=== PATIENT | female | born 1990 | race Caucasian/White ===

== ENCOUNTER 2019-04-12 10:03 | Inpatient (IN) | payer BC, SELFPAY ==
[2019-04-12] VITALS (13 sets, daily range): BP systolic 120–147; BP diastolic 56–84; PULSE 85–120; RESP 14–20; TEMP 36.2–37.1; O2SAT 97–99; BMI 38.9
[2019-04-12] MEDS: Lactated Ringers 500 ML 999 ML IV ×2 (10:30→14:42)
[2019-04-12 10:46] LABS: Absolute Lymphocyte Count 1.74 X10^3/uL (0.83-4.51); Absolute Neutrophil Count 12.2 X10^3/uL (2.0-7.7); Basophil# 0.03 X10^3/uL; Basophil% 0.2 % (0-1); Eosinophil# 0.03 X10^3/uL; Eosinophils% 0.2 % (0-5); Hematocrit 39.9 % (37-47); Hemoglobin 13.9 g/dL (12.0-15.0); Lymphocyte # 1.74 X10^3/ul (4.0); Lymphocyte % 11.6 % (19-41); Mean Corp Hgb Conc 34.8 g/dL (32-36); Mean Corpuscular Hgb 30.5 pg (27.0-32.0); Mean Corpuscular Volume 87.5 fL (81-99); Mean Platelet Vol. 12.1 fl (6.2-12.0); Monocyte# 0.94 X10^3/uL; Monocyte% 6.3 % (0-10); NRBC Flagged by Analyzer 0 % (0-5); Neutrophil % 81.2 % (47-70); Platelet Count 163 K/mm3 (150-450); RBC Distribution Width CV 12.4 % (11.6-14.6); RBC Distribution Width SD 39.3 fl (35.1-43.9); Red Blood Count 4.56 M/mm3 (4.2-5.4)
[2019-04-12] MEDS: Lactated Ringers 1,000 ML 50 ML IV (11:01)
[2019-04-12] MEDS: fentaNYL-bupivacaine (epidural) 100 ML BAG EPIDURAL ×3 (11:20→15:59)
--- NOTE | 2019-04-12 14:03 | HP.PCM_ITS ---
History Date of Admission: 04/12/19 Final PIYUSH: 04/14/19 Final PIYUSH Source: US <20 weeks Gestational age: 39 Weeks and 5 Days History of this : This is a 28 year-old,= 1 para 0 at 39-5/7 weeks gestation presents with spontaneous rupture of membranes and contractions. She was in the office when her brains ruptured spontaneously and she was found to be 6 cm and sent over for labor. She had no gross vaginal bleeding. She had good movement. Contractions started last night and got progressively worse this morning. has been complicated to date by the [facility] in , with BMI of 38 estimated weight is also thought to be in the 95th percentile. She had an ultrasound on 07/2019 which revealed an estimated weight of 3900 g. Allergies Sulfa (Sulfonamide Antibiotics) Allergy (Verified 04/12/19 10:39) Rash Home Medications: Home Medications Pnv No.95/Ferrous Fum/Folic AC [ Caplet] 1 ea PO 04/12/19 Smoking Status: Never smoker Alcohol: None Number of Fetus(es): 1 History Past Pregnancies: Past Pregnancies Delivery Date Name GA/ Weeks Outcome Route Wt Sex Labor Length Anesthesia Delivery Location Provider FOB Expected Infant Delivery Method: Spontaneous Vaginal Review of Systems Constitutional: Denies: Chills, Fever Eyes: Denies: Blurred vision Cardiovascular: Reports: Edema. Denies: Chest Pain Respiratory: Denies: Cough Skin: Denies: Rash Neurological: Denies: Headaches Hematologic/ Lymphatic: Denies: Anemia Physical Exam General: Alert, Cooperative, No apparent distress Cardiovascular: Regular rate Lungs: Normal air movement Abdomen: Soft, Non Tender, Non-Distended, Gravid Extremities:: Other - edema 1+ Neurological: Cranial nerves II-XII grossly intact. Negative for: Slurred Speech, Unsteady Gait REHABILITATION ASSISTANT: Normal external genitalia Estimated gestational size: Appropriate for gestational size Presentation: Cephalic Cervix Dilation (cm): 6 - in the office Station: -2 Effacement (%): 90 Assessment/Plan This is a 28 year-old, 1 para 0 at 39-5/7 weeks gestation with EDC of 04/14/2019 presents with spontaneous rupture membranes in labor. Estimated weight is between 4000 4500 g clinically and by ultrasound. Pelvis is clinically adequate to expect vaginal delivery. Have epidural, or nitrous oxide as needed for pain control. Patient does have thick meconium-stained fluid noticed after her spontaneous rupture of membranes. Will notify Pediatrics for delivery.
--- NOTE | 2019-04-12 16:58 | PN.OBGYN_ITS ---
Subjective: patient complete for 3.5 hrs, pushing for approximately 3. Station is still +1, has not made significant descent w/ pushing over past 1 hr. Giving good effort. With current station I d/w her she meets criteria for arrest of descent. Not appropriate for instrumental delivery trial. Offered c/s vs continue to push for 1 more hr. Patient elects for c/s. will proceed w/ VERA c/s. - Physical Exam Vitals/I&O's: Weight: 109.316 kg Body Mass Index (BMI) 38.9 Intake and Output for Last 24 Hours 04/10/19 04/11/19 04/12/19 23:59 23:59 23:59 Intake Total 1714.17 / 1714.17 Balance 1714.17 / 1714.17 Laboratory Results 04/12/19 10:30: WBC 15.0 H, RBC 4.56, Hgb 13.9, Hct 39.9, MCV 87.5, MCH 30.5, MCHC 34.8, RDW Std Deviation 39.3, RDW Coeff of Cesario 12.4, Plt Count 163, MPV 12.1 H, Immature Gran % (Auto) 0.500, Neut % (Auto) 81.2 H, Lymph % (Auto) 11.6 L, [place] % (Auto) 6.3, Eos % (Auto) 0.2, Baso % (Auto) 0.2, Absolute Neuts (auto) 12.2 H, Absolute Lymphs (auto) 1.74, Nucleated RBC % 0 04/12/19 10:30: Blood Type A POSITIVE, Antibody Screen NEGATIVE Current Medications Acetaminophen (Tylenol) 325 - 650 mg PO Q4H PRN PRN PRN Reason: Pain Score 1-3/10 Al Hydroxide/Mg Hydroxide (Mylanta Ii) 15 - 30 ml PO Q4H PRN PRN PRN Reason: INDIGESTION Citric Acid/Sodium Citrate (Bicitra) 30 ml PO X1 PRN PRN Reason: Section Ephedrine Sulfate () 10 mg IV Q10M PRN PRN Reason: hypotension Ephedrine Sulfate () 10 mg IM Q30M PRN PRN Reason: hypotension Fentanyl Citrate (Sublimaze (100mcg Ampule)) 25 - 50 mcg IV Q2H PRN PRN PRN Reason: Pain Score 4-10/10 Fentanyl/Bupivacaine/Sodium Chlor () 0 ml EPIDURAL UD GABRIELE; Protocol Last Admin: 04/12/19 15:59 Dose: 100 ml Documented by: Lactated Ringer's () 500 mls @ 999 mls/hr IV .Q31M PRN PRN Reason: Epidural Last Infusion: 04/12/19 11:01 Dose: Infused Documented by: Lactated Ringer's () 500 mls @ 999 mls/hr IV .Q31M PRN PRN Reason: Corrective Measures Last Infusion: 04/12/19 15:18 Dose: Infused Documented by: Lactated Ringer's () 1,000 mls @ 50 mls/hr IV .Q20H GABRIELE Last Infusion: 04/12/19 15:18 Dose: 200 mls/hr Documented by: Naloxone HCl 4 mg/ Dextrose 504 mls @ 0 mls/hr IV .Q0M PRN; Protocol PRN Reason: To maintain Resp. rate >10 Cefazolin Sodium 2 gm/ Sodium (Chloride) 110 mls @ 150 mls/hr IV X1 ONE Stop: 04/12/19 17:43 Azithromycin 500 mg/ Dextrose 255 mls @ 250 mls/hr IV X1 ONE Stop: 04/12/19 18:01 Naloxone HCl (Narcan) 0.02 mg IV Q1M PRN PRN Reason: RR< 10 AND PT UNRESPONSIVE Ondansetron HCl (Zofran) 4 mg IV Q4H PRN PRN PRN Reason: NAUSEA Prochlorperazine Edisylate (Compazine Iv) 10 mg IV Q6H PRN PRN PRN Reason: NAUSEA Sodium Chloride () 10 - 40 ml IV X1 PRN PRN Reason: SALINE FLUSH Medical Necessity - Tobacco Use Smoking Status: Never smoker
[2019-04-12] MEDS: Sodium Citrate/Citric Acid 30 ML UDC PO (17:00)
[2019-04-12] MEDS: Cefazolin 2 GM in 0.9% Normal Saline 100 ML IV (17:06)
--- NOTE | 2019-04-12 18:01 | OP.PCM_ITS ---
Delivery Classification: VERA Final PIYUSH: 04/14/19 Final PIYUSH Source: US <20 weeks Gestational age: 39 Weeks and 5 Days union contract representative: Hansel Geiger Type of Anesthesia:: Spinal Special Medications: none Implants Used: none Date of Procedure: 04/12/19 Pre-Operative Diagnosis: labor, meconium stained fluid, arrest of descent Post-Operative Diagnosis: same Description of Procedure: The patient was taken to the operating room. She was prepped and draped in the dorsal supine position with a leftward tilt. A Pfannenstiel skin incision was made approximately 2 cm above the symphysis pubis and carried through to underlying layer fascia with the scalpel. The fascia was incised incised in the midline and extended laterally with the Patrick scissors. The fascia was dissected off the rectus muscles with blunt and sharp dissection. The rectus muscles were in the midline and the peritoneum was entered sharply after tenting it up between 2 hemostats. The peritoneal incision was stretched and the bladder blade was placed. The uterine incision was made in a low transverse fashion with the scalpel and extended superiorly and inferiorly with blunt dissection. After the hysterotomy was made, thick meconium-stained fluid returned. The 's head was brought to the incision in the flexed position and delivered without difficulty. The remainder of the was delivered with gentle traction and fundal pressure in the standard fashion. The mouth and nares were bulb suctioned. The cord was clamped and cut as the was stimulated. Clamping was not delayed because of the meconium stained fluid the infant did not have a vigorous cry yet. The was handed off to the waiting nursing staff. The placenta was delivered with fundal massage and gentle traction in the standard fashion. The uterus was exteriorized and cleared of all clots and debris. . The uterine incision was closed with #1 Vicryl in a running locked fashion. There was a slight extension on the left side that was oversewn with 0 Vicryl suture. Several [id number] sutures were needed in this area to obtain hemostasis. There is a small hematoma in the broad ligament. A second layer of the same suture was used in an imbricating fashion. The incision was examined and was found to be hemostatic and the hematoma was not extending. Del was placed over the incision. The uterus was placed back into the peritoneal cavity and hemostasis was again confirmed. The rectus muscles were examined and any bleeding was Bovie cauterized. The parietal peritoneum and rectus muscles were closed en bloc with an 0 Vicryl running suture. The surgical teams outer gloves were then changed. The rectus fascia was examined and any bleeding was Bovie cauterized and the rectus fascia was closed with 0 PDS suture in a running standard fashion. Arist a was placed over every layer. The subcutaneous tissue was examining and any bleeding was Bovie cauterized. The subcutaneous tissue was reapproximated with 3-0 Vicryl suture. The skin was closed in a subcuticular fashion by the [employer] with me present in the labor and delivery suite. I performed the remainder of the procedure with assistance. All sponge, lap, and needle counts were correct. The patient was taken to her room for recovery in a stable condition. Amniotic Membrane Rupture Type: Spontaneous Amniotic Fluid Description: Thick meconium Placenta Disposition: [facility] Specimen(s) sent to pathology: none Drain: Jo to straight drain Fluids Replaced: 1050 Cord Entanglement: None Cord Vessel Description: 3 Vessels Esitmated Blood Loss (ml): 1000 Gender: Male - [place] (1 minute): 8 (5 minute): 9 Delayed cord clamping: No Antibiotic Given: Ancef 2 grams IV x1, Zithromax 500 mg/5 mL X1
[2019-04-12] MEDS: Oxytocin 30 units/NS 500 ml 30 UNITS/500 ML IV.SOLN 167 UNITS IV (18:15)
[2019-04-12] MEDS: Lactated Ringers 1,000 ML 100 ML IV (22:23)
[2019-04-13] VITALS (13 sets, daily range): BP systolic 105–125; BP diastolic 58–80; PULSE 97–114; RESP 16–18; TEMP 36.6–36.8; O2SAT 97–100
[2019-04-13] MEDS: Ketorolac 30 MG/ML Syringe IV ×4 (00:34→17:42)
--- NOTE | 2019-04-13 01:55 | NURSING ---
0140- Assisted pt out of bed, ambulated around the room. Pt tolerated well, denies any dizziness, and pain is tolerable at this time. Peripad and underpad changed.
[2019-04-13 05:21] LABS: Hemoglobin 10.5 g/dL (12.0-15.0); Mean Corp Hgb Conc 33.9 g/dL (32-36); Mean Corpuscular Hgb 30.2 pg (27.0-32.0); Mean Corpuscular Volume 89.1 fL (81-99); Mean Platelet Vol. 11.9 fl (6.2-12.0); Platelet Count 117 K/mm3 (150-450); RBC Distribution Width CV 13.2 % (11.6-14.6); RBC Distribution Width SD 42.6 fl (35.1-43.9); Red Blood Count 3.48 M/mm3 (4.2-5.4); White Blood Count 14.5 K/mm3 (4.4-11.0)
[2019-04-13] MEDS: 0.9% Saline Lock 10 ML Syringe IV ×2 (06:05→11:52)
--- NOTE | 2019-04-13 08:40 | PCM.PN.OB ---
Subjective: Pain well controlled. Average lochia. - Physical Exam Vitals/I&O's: Vital Signs Temp Pulse Resp BP Pulse Ox 97.9 F 100 16 114/67 99 04/13/19 03:50 04/13/19 06:10 04/13/19 07:49 04/13/19 07:49 04/13/19 07:49 Oxygen Delivery Method Room Air Weight: 109.316 kg Body Mass Index (BMI) 38.9 Intake and Output for Last 24 Hours 04/11/19 04/12/19 04/13/19 23:59 23:59 23:59 Intake Total 3365.00 / 3365.00 686.67 / 686.67 Output Total 700 / 700 Balance 2665.00 / 2665.00 686.67 / 686.67 General: Alert, Cooperative, No apparent distress Abdomen: Soft, Distended - Mildly, softly, Tender - Appropriately Extremities: Edema - 2+ Skin: Incision - Bandage is clean dry and intact Laboratory Results 04/12/19 10:30: WBC 15.0 H, RBC 4.56, Hgb 13.9, Hct 39.9, MCV 87.5, MCH 30.5, MCHC 34.8, RDW Std Deviation 39.3, RDW Coeff of Cesario 12.4, Plt Count 163, MPV 12.1 H, Immature Gran % (Auto) 0.500, Neut % (Auto) 81.2 H, Lymph % (Auto) 11.6 L, [place] % (Auto) 6.3, Eos % (Auto) 0.2, Baso % (Auto) 0.2, Absolute Neuts (auto) 12.2 H, Absolute Lymphs (auto) 1.74, Nucleated RBC % 0 04/12/19 10:30: Blood Type A POSITIVE, Antibody Screen NEGATIVE 04/13/19 05:10: WBC 14.5 H, RBC 3.48 L, Hgb 10.5 L, Hct 31.0 L, MCV 89.1, MCH 30.2, MCHC 33.9, RDW Std Deviation 42.6, RDW Coeff of Cesario 13.2, Plt Count 117 L, MPV 11.9 Current Medications Acetaminophen (Tylenol) 1,000 mg PO Q8H PRN PRN Reason: Pain Score 1-3/10 Bisacodyl (Dulcolax) 10 mg RECTAL UD PRN PRN Reason: If no BM Diphenhydramine HCl (Benadryl) 25 mg PO Q6H PRN PRN PRN Reason: ITCHING Stop: 04/14/19 04:10 Enoxaparin Sodium (Lovenox) 40 mg SC DAILY [facility] Hydrocortisone (Hytone) 1 applic TOPICAL TID PRN PRN; Protocol PRN Reason: Discomfort Lactated Ringer's () 1,000 mls @ 100 mls/hr IV .Q10H [facility] Last Admin: 04/13/19 06:48 Dose: Not Given Documented by: Naloxone HCl 4 mg/ Dextrose 504 mls @ 0 mls/hr IV .Q0M PRN; Protocol PRN Reason: Respiratory depression Ketorolac Tromethamine (Toradol (Bkc)) 30 mg IV Q6 [facility] Stop: 04/14/19 18:01 Last Admin: 04/13/19 06:05 Dose: 30 mg Documented by: Methylergonovine Maleate (Methergine) 0.2 mg IM X1 PRN PRN Reason: Uterine Atony Nalbuphine HCl (Nubain) 5 mg IV Q3H PRN PRN PRN Reason: ITCHING Stop: 04/14/19 04:10 Naloxone HCl (Narcan) 0.02 mg IV Q1M PRN PRN Reason: RR <10 and pt unresponsive Ondansetron HCl (Zofran) 4 mg IV Q4H PRN PRN PRN Reason: Nausea Oxycodone HCl (Oxyir) 5 - 10 mg PO Q4H PRN PRN PRN Reason: Pain Score 4-10/10 Prochlorperazine Edisylate (Compazine Iv) 10 mg IV Q6H PRN PRN PRN Reason: NAUSEA Senna/Docusate Sodium (Senokot-S, Marian-Colace) 0 tablet PO DAILY PRN PRN Reason: Constipation Simethicone (Mylicon) 80 mg PO PCHS PRN PRN Reason: Indigestion/stomach pain Sodium Chloride () 5 - 15 ml IV UD PRN PRN Reason: SALINE FLUSH Last Admin: 04/13/19 06:05 Dose: 10 ml Documented by: Medical Necessity - Tobacco Use Smoking Status: Never smoker Assessment/Plan Postoperative day #1 status post primary section. Working on breast-feeding. Routine care. Patient and are doing well.
[2019-04-13] MEDS: Enoxaparin 40 MG/0.4 ML Syringe SC (10:01)
[2019-04-13] MEDS: Senna/Docusate Sodium 1 Tablet PO (15:51)
[2019-04-13] MEDS: Acetaminophen 500 MG Tablet 1000 MG PO (15:51)
[2019-04-13] MEDS: oxyCODONE 5 MG Tablet PO (18:15)
[2019-04-14] MEDS: 0.9% Saline Lock 10 ML Syringe IV ×3 (00:14→17:53)
[2019-04-14] MEDS: Ketorolac 30 MG/ML Syringe IV ×4 (00:14→17:52)
[2019-04-14 02:20] VITALS: BP 105/62; PULSE 99; RESP 16; TEMP 36.8; O2SAT 96
[2019-04-14] MEDS: oxyCODONE 5 MG Tablet PO ×3 (02:33→16:59)
[2019-04-14 07:55] VITALS: BP 134/74; PULSE 97; RESP 18; TEMP 36.1; O2SAT 97
--- NOTE | 2019-04-14 07:58 | PN.OBGYN_ITS ---
Subjective: Patient is doing well. Pain is well controlled. Lochia normal. She is ambulating and voiding without difficulty. Tolerating regular diet without nausea or vomiting. She denies headache, chest pain, shortness of breath, lightheadedness, dizziness, leg pain. She is breast-feeding. - Physical Exam Vitals/I&O's: Vital Signs Temp Pulse Resp BP Pulse Ox 98.3 F 99 16 105/62 96 04/14/19 02:20 04/14/19 02:20 04/14/19 02:20 04/14/19 02:20 04/14/19 02:20 Oxygen Delivery Method Room Air Weight: 241 lb Body Mass Index (BMI) 38.9 Intake and Output for Last 24 Hours 04/12/19 04/13/19 04/14/19 23:59 23:59 23:59 Intake Total 3365.00 / 3365.00 686.67 / 686.67 Output Total 700 / 700 650 / 650 Balance 2665.00 / 2665.00 36.67 / 36.67 General: Alert, No apparent distress HEENT: Atraumatic Abdomen: Soft, - - ATTP, dressing c/d/i Extremities: No Calf Tenderness, Edema Skin: No rashes Neurological: Neuro grossly intact Psych/Mental Status: Normal Affect, Appropriate Current Medications Acetaminophen (Tylenol) 1,000 mg PO Q8H PRN PRN Reason: Pain Score 1-3/10 Last Admin: 04/13/19 15:51 Dose: 1,000 mg Documented by: Bisacodyl (Dulcolax) 10 mg RECTAL UD PRN PRN Reason: If no BM Enoxaparin Sodium (Lovenox) 40 mg SC DAILY [facility] Last Admin: 04/13/19 10:01 Dose: 40 mg Documented by: Hydrocortisone (Hytone) 1 applic TOPICAL TID PRN PRN; Protocol PRN Reason: Discomfort Naloxone HCl 4 mg/ Dextrose 504 mls @ 0 mls/hr IV .Q0M PRN; Protocol PRN Reason: Respiratory depression Ketorolac Tromethamine (Toradol (Bkc)) 30 mg IV Q6 [facility] Stop: 04/14/19 18:01 Last Admin: 04/14/19 05:57 Dose: 30 mg Documented by: Measles/Mumps/Rubella Vaccine Live (M-M-R Ii) 0.5 ml SC .ONCE ONE Stop: 04/14/19 09:01 Methylergonovine Maleate (Methergine) 0.2 mg IM X1 PRN PRN Reason: Uterine Atony Naloxone HCl (Narcan) 0.02 mg IV Q1M PRN PRN Reason: RR <10 and pt unresponsive Ondansetron HCl (Zofran) 4 mg IV Q4H PRN PRN PRN Reason: Nausea Oxycodone HCl (Oxyir) 5 - 10 mg PO Q4H PRN PRN PRN Reason: Pain Score 4-10/10 Last Admin: 04/14/19 02:33 Dose: 5 mg Documented by: Prochlorperazine Edisylate (Compazine Iv) 10 mg IV Q6H PRN PRN PRN Reason: NAUSEA Senna/Docusate Sodium (Senokot-S, Marian-Colace) 0 tablet PO DAILY PRN PRN Reason: Constipation Last Admin: 04/13/19 15:51 Dose: 1 tablet Documented by: Simethicone (Mylicon) 80 mg PO PCHS PRN PRN Reason: Indigestion/stomach pain Last Admin: 04/14/19 00:20 Dose: 80 mg Documented by: Sodium Chloride () 5 - 15 ml IV UD PRN PRN Reason: SALINE FLUSH Last Admin: 04/14/19 00:14 Dose: 10 ml Documented by: Medical Necessity - Tobacco Use Smoking Status: Never smoker Assessment/Plan Patient is postop day 2 from a section. She is doing well. Breast- feeding. Platelets were low on postop day 1 so we will recheck today. Dispo: Anticipate discharge tomorrow.
[2019-04-14 08:30] VITALS: PULSE 94; RESP 18; O2SAT 98
[2019-04-14 08:39] VITALS: BP 134/74; PULSE 94; RESP 18; TEMP 36.9; O2SAT 98
[2019-04-14 09:07] LABS: Hematocrit 31.2 % (37-47); Hemoglobin 10.3 g/dL (12.0-15.0); Mean Corpuscular Hgb 30.6 pg (27.0-32.0); Mean Corpuscular Volume 92.6 fL (81-99); Mean Platelet Vol. 10.7 fl (6.2-12.0); Platelet Count 136 K/mm3 (150-450); RBC Distribution Width CV 13.5 % (11.6-14.6); RBC Distribution Width SD 45.7 fl (35.1-43.9); Red Blood Count 3.37 M/mm3 (4.2-5.4); White Blood Count 11.1 K/mm3 (4.4-11.0)
[2019-04-14] MEDS: Enoxaparin 40 MG/0.4 ML Syringe SC (10:14)
[2019-04-14 13:38] VITALS: BP 122/65; PULSE 93; RESP 18; TEMP 36.4; O2SAT 98
[2019-04-14] MEDS: Senna/Docusate Sodium 1 Tablet PO (16:21)
[2019-04-14 21:09] VITALS: BP 126/73; PULSE 92; RESP 16; TEMP 36.9; O2SAT 99
[2019-04-15] MEDS: Ibuprofen 600 MG Tablet PO ×2 (00:01→06:04)
[2019-04-15 02:53] VITALS: BP 121/71; PULSE 98; RESP 16; TEMP 36.9; O2SAT 96
--- NOTE | 2019-04-15 08:08 | PCM.PN.OB ---
Subjective: Patient doing well. Pain well controlled. Tolerating regular diet without nausea or vomiting. Ambulating voiding without difficulty. Denies lightheadedness, dizziness, chest pain, shortness of breath, leg pain. Breast-feeding without any complaints. Lochia normal. - Physical Exam Vitals/I&O's: Vital Signs Temp Pulse Resp BP Pulse Ox 98.5 F 98 16 121/71 H 96 04/15/19 02:53 04/15/19 02:53 04/15/19 02:53 04/15/19 02:53 04/15/19 02:53 Oxygen Delivery Method Room Air Weight: 241 lb Body Mass Index (BMI) 38.9 Intake and Output for Last 24 Hours 04/13/19 04/14/19 04/15/19 23:59 23:59 23:59 Intake Total 686.67 / 686.67 Output Total 650 / 650 Balance 36.67 / 36.67 General: Alert, No apparent distress HEENT: Atraumatic Abdomen: Soft, - - ATTP, dressing c/d/i, FF@U Extremities: No Calf Tenderness, Edema Skin: No rashes Neurological: Neuro grossly intact Psych/Mental Status: Normal Affect, Appropriate Laboratory Results 04/14/19 09:00: WBC 11.1 H, RBC 3.37 L, Hgb 10.3 L, Hct 31.2 L, MCV 92.6, MCH 30.6, MCHC 33.0, RDW Std Deviation 45.7 H, RDW Coeff of Cesario 13.5, Plt Count 136 L, MPV 10.7 Current Medications Acetaminophen (Tylenol) 1,000 mg PO Q8H PRN PRN Reason: Pain Score 1-3/10 Last Admin: 04/13/19 15:51 Dose: 1,000 mg Documented by: Bisacodyl (Dulcolax) 10 mg RECTAL UD PRN PRN Reason: If no BM Enoxaparin Sodium (Lovenox) 40 mg SC DAILY [facility] Last Admin: 04/14/19 10:14 Dose: 40 mg Documented by: Hydrocortisone (Hytone) 1 applic TOPICAL TID PRN PRN; Protocol PRN Reason: Discomfort Naloxone HCl 4 mg/ Dextrose 504 mls @ 0 mls/hr IV .Q0M PRN; Protocol PRN Reason: Respiratory depression Ibuprofen (Motrin) 600 mg PO Q6H PRN PRN PRN Reason: Pain Score 1-3/10 Last Admin: 04/15/19 06:04 Dose: 600 mg Documented by: Methylergonovine Maleate (Methergine) 0.2 mg IM X1 PRN PRN Reason: Uterine Atony Naloxone HCl (Narcan) 0.02 mg IV Q1M PRN PRN Reason: RR <10 and pt unresponsive Ondansetron HCl (Zofran) 4 mg IV Q4H PRN PRN PRN Reason: Nausea Oxycodone HCl (Oxyir) 5 - 10 mg PO Q4H PRN PRN PRN Reason: Pain Score 4-10/10 Last Admin: 04/14/19 16:59 Dose: 10 mg Documented by: Prochlorperazine Edisylate (Compazine Iv) 10 mg IV Q6H PRN PRN PRN Reason: NAUSEA Senna/Docusate Sodium (Senokot-S, Marian-Colace) 0 tablet PO DAILY PRN PRN Reason: Constipation Last Admin: 04/14/19 16:21 Dose: 1 tablet Documented by: Simethicone (Mylicon) 80 mg PO PCHS PRN PRN Reason: Indigestion/stomach pain Last Admin: 04/14/19 00:20 Dose: 80 mg Documented by: Sodium Chloride () 5 - 15 ml IV UD PRN PRN Reason: SALINE FLUSH Last Admin: 04/14/19 17:53 Dose: 10 ml Documented by: Medical Necessity - Tobacco Use Smoking Status: Never smoker Assessment/Plan POD#3 s/p PLTCS - Doing well - - Dispo: Pt desires to go home today. Discharge instructions reviewed
[2019-04-15 08:50] VITALS: BP 131/65; PULSE 94; RESP 16; TEMP 36.4; O2SAT 95
--- NOTE | 2019-04-15 09:09 | DCINST_ITS ---
Discharge Diet: No Restrictions Discharge Activity: May not drive while taking narcotic pain medications., May Shower May resume sexual activity in: 6 weeks Ice area for (Minutes): 15 Weight Bearing Status: Weight bearing as tolerated Lifting Restrictions: No lifting greater than 20 lbs Call your doctor if your incision/area has: Sudden Increased Bleeding, Increased Pain/ Swelling, Increased Redness, Foul Smelling Discharge, Swelling at the incision site Call your doctor if you observe: Fever of 101 or Higher, Inability to urinate, Inability to have a bowel movement, Using more than one pad per hour, Shortness of breath, Dizziness, Chest pain, Increased palpitations (irregular heartbeat), Calf discomfort, Uncontrolled pain Suture Line Care: Avoid Pulling/Pushing, Avoid Pinching/Bending Remove Dressing in (days):: 5 Cleanse incision/area with: Soap & Water Additional Instructions: If you experience any of the following, contact your healthcare provider. * Bleeding that soaks a pad every hour for 2 hours * Fever 100.4 or higher * Unrelieved incision or abdominal pain * Swelling, redness, discharge or bleeding from your incision or episiotomy site * Your incision begins to separate * Problems urinating (including inability to urinate or burning while urinating). * Visual changes * Severe headache * Flu-like symptoms * Pain or redness in one of both of your breasts * Pain, warmth, tenderness or swelling in your legs, especially the calf area * Frequent nausea and vomiting * Symptoms of depression or anxiety If you experience any of the following, call 911 or go to the nearest Emergency Room. * Chest pain * Problems breathing * Seizure activity * Partial or complete paralysis of a body part, slurred speech, weakness or drooping of the face, or a sudden inability to walk or hold your balance Allergies/Adverse Reactions: Allergies Sulfa (Sulfonamide Antibiotics) Allergy (Verified 04/12/19 10:39) Rash Medications to take at Discharge Pnv No.95/Ferrous Fum/Folic AC [ Caplet] 1 ea PO 04/12/19 Oxycodone HCl/Acetaminophen [Percocet 5/325] 1 tablet PO Q6H PRN PRN 7 Days #20 tablet 04/15/19 The following prescriptions were given: Oxycodone HCl/Acetaminophen [Percocet 5/325] 1 tablet PO Q6H PRN PRN 7 Days #20 tablet PRN Reason: Pain Score 6-10/10 Transmission Status: Received by [id number] Follow-Up: Call to make an appointment with your doctor for an incision check in 1-2 weeks. You will also need a 6 week post- follow up appointment. Test results from this visit will be discussed in further detail at your follow- up appointment, if applicable. When: 1 week for incision check and 6 weeks for visit Primary Care Physician: Abhijeet Prieto MD [Primary Care Provider] -
[2019-04-15] MEDS: Enoxaparin 40 MG/0.4 ML Syringe SC (10:39)
--- NOTE | 2019-04-19 13:31 | DS.PCM_ITS ---
Discharge Date and Diagnosis Date of Admission: 04/12/19 Date of Discharge: 04/15/19 Hospital Course and Treatment Consultations 04/12/19 10:29 Consult: Anesthesia Routine Comment: Reason For Exam: Labor Operations: - - PLTCS Summary of Care Provided: The patient is a 28 year old F who presented at 39 wks gestation in labor. Cvx was 4 cm dilated in the office the day prior and membrane sweep was performe d at request of the patient after discussion of r/b. Suspected macrosomia based on most recent US that was ordered as she was measuring S>D. She desired to try for a vaginal delivery if in labor, but had declined induction. She progressed to complete and was pushing for 3 hour with no change in station. She was taken for a primary section. See operative report for details. She was ambulating, voiding, tolerating a regular diet, and pain was well controlled post operatively. She was discharged home in good condition on POD#3. - Physical Exam Vitals/I&O's: Vital Signs Temp Pulse Resp BP Pulse Ox 97.5 F L 94 16 131/65 H 95 04/15/19 08:50 04/15/19 08:50 04/15/19 08:50 04/15/19 08:50 04/15/19 08:50 Oxygen Delivery Method Room Air Weight: 241 lb Body Mass Index (BMI) 38.9 Discharge Diet: No Restrictions Discharge Activity: May not drive while taking narcotic pain medications., May Shower May resume sexual activity in: 6 weeks Ice area for (Minutes): 15 Weight Bearing Status: Weight bearing as tolerated Call your doctor if your incision/area has: Sudden Increased Bleeding, Increased Pain/ Swelling, Increased Redness, Foul Smelling Discharge, Swelling at the incision site Call your doctor if you observe: Fever of 101 or Higher, Inability to urinate, Inability to have a bowel movement, Using more than one pad per hour, Shortness of breath, Dizziness, Chest pain, Increased palpitations (irregular heartbeat), Calf discomfort, Uncontrolled pain Suture Line Care: Avoid Pulling/Pushing, Avoid Pinching/Bending Remove Dressing in (days):: 5 Cleanse incision/area with: Soap & Water Home Medications: Medications to take at Discharge Pnv No.95/Ferrous Fum/Folic AC [ Caplet] 1 ea PO 04/12/19 Oxycodone HCl/Acetaminophen [Percocet 5/325] 1 tab PO Q6H PRN PRN 7 Days #20 tab 04/15/19 Following Prescrptions Were Given to Patient: Oxycodone HCl/Acetaminophen [Percocet 5/325] 1 tab PO Q6H PRN PRN 7 Days #20 tab PRN Reason: Pain Score 6-10/10 Transmission Status: Re[id number] Primary Care Physician: Abhijeet Prieto MD [Primary Care Provider] - When: 1 week for incision check and 6 weeks for visit Medical Necessity - Tobacco Use Smoking Status: Never smoker Meaningful Use Info Meaningful Use Diagnoses (Choose all that apply): None applicable
== END 2019-04-15 12:50 | disposition home or self-care (01) | DRG 787 ==
PROVIDERS: Obstetrics & Gynecology; Admitting Provider Obstetrics & Gynecology; PCP Family Medicine; Visit Provider Obstetrics & Gynecology
DX: O62.1 Secondary uterine inertia (principal); O71.7 Obstetric hematoma of pelvis; O77.0 Labor and delivery complicated by meconium in amniotic fluid; Z37.0 Single live birth; Z3A.39 39 weeks gestation of pregnancy
CPT/HCPCS: 59050; 85025; 85027; 86850; 86900; 86901; 99218; 99251; J7120; A4216; G0378; G0463; J2405; J3490

== ENCOUNTER 2021-05-22 09:30 | Inpatient (IN) | payer BC, SELFPAY ==
[2021-05-22] VITALS (19 sets, daily range): BP systolic 102–129; BP diastolic 36–76; PULSE 60–89; RESP 12–18; TEMP 36.1–36.6; O2SAT 97–99; BMI 36.7
[2021-05-22] MEDS: Lactated Ringers 1,000 ML 999 ML IV (10:30)
[2021-05-22 10:39] LABS: Absolute Lymphocyte Count 1.24 X10^3/uL (0.83-4.51); Absolute Neutrophil Count 4.6 X10^3/uL (2.0-7.7); Basophil# 0.01 X10^3/uL; Basophil% 0.2 % (0-1); Eosinophil# 0.03 X10^3/uL; Eosinophils% 0.5 % (0-5); Hematocrit 35.9 % (37-47); Lymphocyte # 1.24 X10^3/ul (0.83-4.51); Lymphocyte % 19.8 % (19-41); Mean Corp Hgb Conc 33.4 g/dL (32-36); Mean Corpuscular Hgb 27.5 pg (27.0-32.0); Mean Corpuscular Volume 82.3 fL (81-99); Mean Platelet Vol. 11.5 fl (6.2-12.0); Monocyte# 0.38 X10^3/uL; Monocyte% 6.1 % (0-10); NRBC Flagged by Analyzer 0 % (0-5); Neutrophil # 4.56 X10^3/uL (2.7-7.7); Neutrophil % 72.6 % (47-70); Platelet Count 155 K/mm3 (150-450); RBC Distribution Width CV 13.7 % (11.6-14.6); RBC Distribution Width SD 40.9 fl (35.1-43.9); Red Blood Count 4.36 M/mm3 (4.2-5.4); White Blood Count 6.3 K/mm3 (4.4-11.0)
[2021-05-22] MEDS: Acetaminophen 500 MG Tablet 1000 MG PO ×2 (11:03→17:36)
[2021-05-22] MEDS: Lactated Ringers 1,000 ML 150 ML IV (11:30)
[2021-05-22] MEDS: Sodium Citrate/Citric Acid 30 ML UDC PO (11:55)
[2021-05-22] MEDS: Cefazolin 2 GM in 0.9% Normal Saline 100 ML IV (12:16)
--- NOTE | 2021-05-22 13:17 | PCM.HP.OB ---
HPI - General General Date of Admission: 05/22/21 HPI Narrative HAIR HERNANDEZ, is a 30 F who presents for scheduled repeat section. PFSH PFSH Medical History no medical history Home Medications PNV cmb#95-ferrous fumarate-FA 1 ea PO DAILY 04/12/19 [History Last Taken 05/21/21 08:00 1 tab] cetirizine [Zyrtec] 10 mg PO DAILY 05/22/21 [History Last Taken 05/21/21 08:00 10 mg] Allergy/AdvReac Type Severity Reaction Status Date / Time Sulfa (Sulfonamide Allergy Rash Verified 05/22/21 10:06 Antibiotics) Family History (Updated 05/22/21 @ 10:51 by Brooklyn Wallace) Father FH: heart attack Grandfather Cancer Surgical History (Updated 05/22/21 @ 13:[address] Malou Bain, DO) Previous section Social History Smoking Status: Never smoker History Elective abortions Hx Para 1 Spontaneous abortions Hx # Term Pregnancies Ectopic pregnancies Hx # Pregnancies Multiple births # of living children Vital Signs Vital Signs Vital Signs: 05/22/21 10:35 Temperature 97.6 F L Temperature Source Temporal Pulse Rate 89 Respiratory Rate 18 Blood Pressure 129/76 H Blood Pressure Mean 93 Blood Pressure Source Monitor Blood Pressure Position Semi-Fowlers Blood Pressure Location Left Arm Pulse Ox 98 Oxygen Delivery Method Room Air Weight Weight: 234 lb 5.622 oz Body Mass Index (BMI) 36.7 Labs Labs Labs: Blood Type A POSITIVE Antibody Screen NEGATIVE Hct 35.9 % (37-47) L Hgb 12.0 g/dL (12.0-15.0) VZV IgG Antibody 1.15 index (Immune >1.09-) Rubella IgG Antibody 6.8 IU/mL Rhogam given: No Assessment & Plan (1) 39 weeks gestation of : PLAN: See [facility] H&P scanned into chart Routine pre op care Ancef pre op Discussed r/b/a to scheduled repeat section and consent signed (2) History of section: (3) Delivery by section:
--- NOTE | 2021-05-22 13:21 | PCM.OPRPT ---
Problems Associated Problem List Diagnoses (1) 39 weeks gestation of : (2) History of section: Report of Operation Date of Procedure: 05/22/21 Pre-Operative Diagnosis: 39 week gestation, history of prior section Post-Operative Diagnosis: As above Surgery/Procedure Performed:: RLTCS via pfannenstiel incision Description of Surgical Findings:: Apgars 8, 9. VMI weighing 9lb 6 ounces. Very thin lower uterine segment. Minimal adhesive disease. Clear fluid. Normal appearing placenta with 3 VC. Normal uterus and bilateral adnexa Surgeon: Taya acute care assistant: Vandana Type of Anesthesia: Spinal Special Medications: None Specimen's removed: Placenta Drains: Jo Estimated Blood Loss (mL): 400 Fluids Replaced: See anesthesia record Description of Procedure: The pt was takend to the operating room where spinal anesthesia was found to be adequate. She was prepped and draped in a dorsal position with a leftward tilt. A Pfannenstiel skin incision was made with a scalpel and this was carried down to the underlying layer of fascia. The fascia was incised in midline. The fascia was extended laterally using Patrick scissors. The fascia was dissected off the rectus muscles using a combination of sharp and blunt dissection. The rectus muscles were adhered in the midline. Rectus muscles were in the midline buntly. The peritoneum was entered bluntly with good visualization of the bladder. The peritoneal excision incision was extended bluntly. A bladder blade was inserted. A bladder flap was created. There were minimal adhesions of the bladder to the uterus. A low transverse incision was made on the uterus with a scalpel and the lower uterine segment was noted to be very thin. No window was noted. The head of the infant was brought to the hysterotomy in a flexed position. A viable male infant was delivered through the hysterotomy easily without any excessive force or delay. The cord was clamped and cut after slight delay and the was vigorous, and handed off to the waiting nursery staff. The placenta was removed with manual extraction and normal-appearing. Uterus was exteriorized. Uterus was cleared of all clot and debris. The uterine incision was closed in a 2 layer fashion. The initial layer was using 1 Vicryl in a running locked fashion. 1 Vicryl was then used for a second imbricating layer. Hemostasis was noted. Uterus placed back into the abdomen. Arrista was placed over the hysterotomy. The peritoneum was closed with 3-0 Vicryl in a running fashion. The rectus muscles were made hemostatic with Bovie cautery. The fascia was closed with strata fix in a running fashion. The subcutaneous space was irrigated made hemostatic with Bovie cautery. The subcutaneous space was reapproximated with 3-0 Vicryl. The skin was closed in a subcuticular fashion using 4 Monocryl. A dressing was placed. Instrument, sponge, sharp counts were correct. The patient was taken recovery in stable condition. Grafts/Implants Used: None Complications None Admit VTE Documentation VTE Present on Admission: No VTE Mechan Device Prophylaxis: SCD's
[2021-05-22] MEDS: Oxytocin 30 units/NS 500 ml 30 UNITS/500 ML IV.SOLN 167 UNITS IV (13:45)
[2021-05-22] MEDS: Ketorolac 30 MG/ML Syringe IV ×2 (15:18→20:57)
[2021-05-22] MEDS: proCHLORPERazine 10 MG/2 ML Vial IV (15:52)
[2021-05-22] MEDS: Lactated Ringers 1,000 ML 100 ML IV (17:35)
[2021-05-22] MEDS: 0.9% Saline Lock 10 ML Syringe IV (17:56)
[2021-05-22] MEDS: Ondansetron 4 MG/2 ML Vial IV (19:38)
--- NOTE | 2021-05-22 22:30 | NURSING ---
Assisted pt to sit and stand at the side of the bed. When pt stood up, she became a little lightheaded and nauseous, declined any medications for nausea. Pt did not want to walk around room at this time, and wanted to get back into bed. Will attempt to get pt out of bed later.
[2021-05-23 00:22] VITALS: BP 111/49; PULSE 62; RESP 16; TEMP 36.6; O2SAT 99
[2021-05-23] MEDS: Enoxaparin 40 MG/0.4 ML Syringe SC (00:24)
[2021-05-23] MEDS: Acetaminophen 500 MG Tablet 1000 MG PO ×3 (00:24→13:35)
[2021-05-23] MEDS: Ketorolac 30 MG/ML Syringe IV ×2 (03:23→09:15)
[2021-05-23 03:46] VITALS: BP 105/37; PULSE 63; RESP 16; TEMP 36.6
[2021-05-23 05:24] LABS: Hematocrit 30.4 % (37-47); Hemoglobin 10.2 g/dL (12.0-15.0); Mean Corp Hgb Conc 33.6 g/dL (32-36); Mean Corpuscular Hgb 27.6 pg (27.0-32.0); Mean Corpuscular Volume 82.4 fL (81-99); Mean Platelet Vol. 11.7 fl (6.2-12.0); Platelet Count 140 K/mm3 (150-450); RBC Distribution Width CV 13.7 % (11.6-14.6); RBC Distribution Width SD 41.1 fl (35.1-43.9); Red Blood Count 3.69 M/mm3 (4.2-5.4); White Blood Count 7.4 K/mm3 (4.4-11.0)
[2021-05-23 07:55] VITALS: RESP 16; TEMP 36.4
[2021-05-23 08:17] VITALS: BP 126/61; PULSE 79; RESP 16; TEMP 36.4; O2SAT 97
[2021-05-23] MEDS: Senna/Docusate Sodium 1 Tablet PO (10:17)
--- NOTE | 2021-05-23 11:18 | PCM.PN.OB ---
Subjective Subjective Patient is doing well. Pain is well controlled. Ambulating and voiding without difficulty. Tolerating a regular diet without nausea or vomiting. No lightheadedness dizziness. No chest pain or shortness of breath. Lochia is normal. She breast-feeding without complaints. She desires to go home today. Objective Data Objective Data Vital Signs: Vital Signs Temp Pulse Resp BP Pulse Ox 97.5 F L 79 16 126/61 H 97 05/23/21 08:17 05/23/21 08:17 05/23/21 08:17 05/23/21 08:17 05/23/21 08:17 Oxygen Delivery Method Room Air Weight: 234 lb 5.622 oz Body Mass Index (BMI) 36.7 Intake & Output: Intake and Output for Last 24 Hours 05/21/21 05/22/21 05/23/21 23:59 23:59 23:59 Intake Total 2234 / 2234 1000 / 1000 Output Total 950 / 950 750 / 750 Balance 1284 / 1284 250 / 250 Lab / Micro Data Result Diagrams: 05/23/21 05:15 Labs: Laboratory Results - last 24 hr 05/22/21 10:00: Blood Type A POSITIVE, Antibody Screen NEGATIVE 05/23/21 05:15: WBC 7.4, RBC 3.69 L, Hgb 10.2 L, Hct 30.4 L, MCV 82.4, MCH 27.6, MCHC 33.6, RDW Std Deviation 41.1, RDW Coeff of Cesario 13.7, Plt Count 140 L, MPV 11.7 Physical Exam Const alert and no apparent distress General Appearance: comfortable Assessment & Plan (1) Delivery by section: PLAN: POD#1 s/p RLTCS - Doing well. VSS and Hgb appropriate post op - Pain controlled - - Discussed surgery and thin lower uterine segment. Discussed recommended interval, and importance of avoiding a short interval . Also discussed recommendation for a repeat section with next , and would not recommend TOLAC - Discharge instructions reviewed
--- NOTE | 2021-05-23 11:23 | PCM.DC ---
Discharge Instructions Diet Discharge Diet: No restrictions Activity Discharge Activity: May Not Drive and May Shower May resume sexual activity in: 6 weeks Ice area for (Minutes): 15 Weight Bearing Status: Weight bearing as tolerated Lifting Restrictions: nothing heavier than baby Dressing / Incision Call your doctor if your incision/area has: Continuous Slow Oozing, Sudden Increased Bleeding, Increased Pain/ Swelling, Increased Redness, Foul Smelling Discharge and Swelling at the incision site Call your doctor if you observe: Fever of 101 or Higher, Coldness, Increased Pain, Numbness or Tingling, Change in Color, Inability to urinate, Inability to have a bowel movement, Using more than 1 pad per hour, Shortness of breath, Dizziness, Fainting spells, Swelling in the ankles, Chest pain, Increased palpitations (irregular heartbeat), Calf discomfort and Uncontrolled pain Suture Line Care: Avoid Pulling/Pushing and Avoid Pinching/Bending Remove Dressing in: 3 days Cleanse incision/area with: Soap & Water Follow Up Care Please Follow Up With: Taya When: 1 week for incision check 6 weeks for visit Test Results: Test results from this visit will be discussed in further detail at your follow-up appointment, if applicable. Discharge Plan Admission Admit Date/Time: 05/22/21 09:30 Primary Reason for Your Visit: Delivery Attending Provider: Malou Bain Primary Care Provider: Abhijeet Prieto Instructions Patient Instructions: After a Discharge Orders/Prescriptions Prescriptions: New oxycodone-acetaminophen [Percocet] 5-325 mg tablet 1 tab PO Q6H PRN (Reason: pain) 7 Days Qty: 15 RF: 0 ibuprofen 600 mg tablet 600 mg PO Q6H PRN (Reason: pain) Qty: 30 RF: 0 docusate sodium [Colace] 100 mg capsule 100 mg PO BID Qty: 30 RF: 0 Continued PNV cmb#95-ferrous fumarate-FA 1 EACH tablet 1 ea PO DAILY RF: 0 cetirizine [Zyrtec] 10 mg Tablet 10 mg PO DAILY RF: 0 Referrals / Follow Up: Abhijeet rPieto MD [Primary Care Provider] - Disposition Disposition (needs filled in before D/C Order can be placed): Home, Self Care
[2021-05-23 14:49] VITALS: BP 126/64; PULSE 89; RESP 16; TEMP 36.8; O2SAT 97
[2021-05-23] MEDS: Ibuprofen 600 MG Tablet PO (16:25)
--- NOTE | 2021-05-23 18:25 | NURSING ---
this RN has reviewed and agrees with charting completed by tanner Monroy RN
== END 2021-05-23 17:00 | disposition home or self-care (01) | DRG 788 ==
PROVIDERS: Admitting Provider Obstetrics & Gynecology; PCP Family Medicine; Visit Provider Obstetrics & Gynecology
PROC: 10D00Z1 Extraction of Products of Conception, Low, Open Approach (ICD-10-PCS; CPT 59514; principal; 2021-05-22 11:45)
DX: O34.211 Maternal care for low transverse scar from previous cesarean delivery (principal); Z37.0 Single live birth; Z3A.39 39 weeks gestation of pregnancy
CPT/HCPCS: 59025; 59050; 85025; 85027; 86850; 86900; 86901; 99218; 99251; J7120; A4216; G0378; G0463; J2405

== ENCOUNTER 2023-04-23 05:02 | Inpatient (IN) | payer BC, SELFPAY ==
--- NOTE | 2023-04-10 12:36 | HP.PCM_ITS ---
History and Physical Date of Admission: 04/23/23 HPI: The patient is a 32 year old female presenting for pre-operative visit. She is scheduled for , for previous c/s on 04/23/23. Procedure discussed along with risks, benefits and complications. Other alternatives discussed for management. Consent form signed? Yes. ? ? PAST MEDICAL HISTORY PAST MEDICAL HISTORY Diagnosis Date ? Infertility, female ? ? PCOS (polycystic ovarian syndrome) ? ? ? PAST SURGICAL HISTORY PAST SURGICAL HISTORY Procedure Laterality Date ? DELIVERY ONLY ? ? ? DELIVERY ONLY ? 05/22/2021 ? repeat LTCS ? UNSPECIFIED ORAL SURGERY PROCEDURE, BY REPORT ? CURRENT MEDICATIONS Current Outpatient Medications Medication Sig Dispense Refill ? no115/iron/folic acid ( 19 ORAL) Take 1 tablet by mouth once daily. ? ? ? cetirizine (ZYRTEC) 10 mg tablet Take 10 mg by mouth once daily. ? ? ? No current facility-administered medications for this visit. ? ? ALLERGIES: Sulfa (Sulfonamide Antibiotics) ? PERSONAL HISTORY: SOCIAL HISTORY Social History ? Tobacco Use ? Smoking status: Never ? Smokeless tobacco: Never Vaping Use ? Vaping Use: Never used Substance Use Topics ? Alcohol use: Not Currently ? ? Comment: socially ? Drug use: Never ? FAMILY HISTORY: FAMILY HISTORY FAMILY HISTORY Problem Relation Age of Onset ? No Known Problems Mother ? ? Heart Attack Father 46 ? Asthma Brother ? ? No Known Problems Brother ? ? No Known Problems Maternal Grandmother ? ? Cancer Maternal Grandfather ? ? throat ? Dementia Paternal Grandmother ? ? No Known Problems Paternal Grandfather ? ? No Known Problems Son ? ? No Known Problems Son ? ? ? REVIEW OF SYMPTOMS: GENERAL: denies fevers or chills ENDOCRINOLOGY: has not been on steroids Cardiology : denies palpitations or chest pain Respiratory: denies SOB or cough Hematology: denies history of prolonged bleeding or easy bruising or VTE Allergy: Denies history of personal or family history of allergy to anesthesia ? PHYSICAL EXAMINATION: ? VITALS: Blood pressure 132/78, pulse 81, resp. rate 16, height 5' 7 (1.702 m), weight 245 lb (111.1 kg), last menstrual period 07/24/2022, SpO2 100%, unknown if currently . ? GENERAL: The patient is well nourished, well hydrated in no acute distress. , The patient is oriented to time, place, and person. NECK: Supple. No lynphadenopathy, normal thyroid, no thyromegaly. LUNGS: Clear to auscultation bilaterally. no wheezes, rhonchi or rales HEART: Regular rate and rhythm, Normal heart sounds, and No murmurs or gallops GENITALIA: Normal external genitalia, Urethral meatus normal, Bladder nontender, normal vagina and normal vaginal tone, normal cervix, normal uterus, size and consistency, normal adnexa without masses or tenderness, and perineum WNL abd- soft, nontender, gravid ? IMPRESSION: Estimated Date of Delivery: 04/30/23 previous c/s ? PLAN: The risks/benefits/alternatives and personal involved for the planned c- section were reviewed with the patient. Her questions were answered to her satisfaction and she desires to proceed. Consent was signed. I reviewed with her postop instructions and expectations. ? ? I have reviewed and updated past medical and surgical history, medications and allergies
[2023-04-23] VITALS (19 sets, daily range): BP systolic 115–146; BP diastolic 56–97; PULSE 68–99; RESP 10–21; TEMP 36.1–36.9; O2SAT 96–100; BMI 39.4
[2023-04-23] MEDS: Lactated Ringers 1,000 ML 999 ML IV (05:50)
--- NOTE | 2023-04-23 06:38 | NURSING ---
See paper FHR tracing due to computer down time. FHR 145 with moderate variability, one variable, and accelerations present. Irregular contractions present palpating for mild contractions. Reactive NST obtained.
[2023-04-23] MEDS: Sodium Citrate/Citric Acid 30 ML UDC PO (07:01)
[2023-04-23] MEDS: Lactated Ringers 1,000 ML 150 ML IV (07:01)
[2023-04-23] MEDS: Acetaminophen 500 MG Tablet 1000 MG PO ×2 (07:01→21:20)
[2023-04-23] MEDS: Cefazolin 2 GM in 0.9% Normal Saline (100mL Bag) 100 ML IV (07:19)
[2023-04-23 07:53] LABS: Hematocrit 32.1 % (37-47); Hemoglobin 10.3 g/dL (12.0-15.0); Mean Corp Hgb Conc 32.1 g/dL (32-36); Mean Corpuscular Hgb 25.9 pg (27.0-32.0); Mean Corpuscular Volume 80.7 fL (81-99); Platelet Count 159 K/mm3 (150-450); RBC Distribution Width SD 13.4 fl (35.1-43.9); Red Blood Count 3.98 M/mm3 (4.2-5.4); White Blood Count 7.7 K/mm3 (4.4-11.0)
[2023-04-23 07:54] LABS: Absolute Lymphocyte Count 1.53 X10^3/uL (0.83-4.51); Absolute Neutrophil Count 5.5 X10^3/uL (2.0-7.7); Basophil% 0.3 % (0-1); Eosinophils% 0.9 % (0-5); Lymphocyte % 19.8 % (19-41); Mean Platelet Vol. 12.1 fl (6.2-12.0); Monocyte% 6.9 % (0-10); Neutrophil % 71.5 % (47-70)
--- NOTE | 2023-04-23 08:10 | OP.PCM_ITS ---
Assessment & Plan (1) delivery delivered: Maternal Data Information Final PIYUSH: 04/30/23 Final PIYUSH Source: US <20 weeks Gestational age: 39 0/7 Details Operative Information Date of Procedure: 04/23/23 Pre-Operative Diagnosis: previous c/s Post-Operative Diagnosis: same Indications for : Repeat Elective Classification: Scheduled Procedure Type: low transverse sports coordinator #1: Rosa Jordan Type of Anesthesia: Spinal Anesthesiologist: Valerie Ervin Special Medications: duramorph Antibiotic Given: Ancef 2 grams IV x1 Drain: Jo to straight drain Estimated Blood Loss: 700 Fluids Replaced: 1000 Procedure Start Time: 07:43 Procedure Stop Time: 08:16 Time of Delivery: 07:46 Findings Description of Procedure: The patient was taken to the operating room. She was prepped and draped in the dorsal supine position with a leftward tilt. A Pfannenstiel skin incision was made approximately 2 cm above the symphysis pubis and carried through to underlying layer fascia with the scalpel. The fascia was incised incised in the midline and extended laterally with the Patrick scissors. The fascia was dissected off the rectus muscles with blunt and sharp dissection. The rectus muscles were in the midline and the peritoneum was entered bluntly. The peritoneal incision was stretched and the bladder blade was placed. The uterine incision was made in a low transverse fashion with the scalpel and extended superiorly and inferiorly with blunt dissection. The amniotic memb ranes were ruptured bluntly and clear amniotic fluid returned. The infant's head was brought to the incision in the flexed position and delivered without difficulty. The remainder of the was delivered with gentle traction and fundal pressure in the standard fashion. The mouth and nares were bulb suctioned. The cord was clamped and cut as the infant was stimulated. Cord clamping was delayed approximately 30 seconds. The infant was handed off to the waiting nursing staff. The placenta was delivered with fundal massage and gentle traction in the standard fashion. The uterus was exteriorized and cleared of all clots and debris. The cervix was dilated with a ring forcep. The uterine incision was closed with #1 Vicryl in a running locked fashion. Some Del was placed over the incision. The incision was examined and was found to be hemostatic. The uterus was placed back into the peritoneal cavity and hemostasis was again confirmed. The rectus muscles were examined and any bleeding was Bovie cauterized. The parietal peritoneum and rectus muscles were closed en bloc with an 0 Vicryl running suture. The rectus fascia was examined and any bleeding was Bovie cauterized and the rectus fascia was closed with #1 PDS suture in a running standard fashion. The subcutaneous tissue was examining and any bleeding was Bovie cauterized. The subcutaneous tissue was reapproximated with 3-0 Vicryl suture. The skin was closed in a subcuticular fashion by the CLAM BED WORKER with me present in the labor and delivery suite. I performed the remainder of the procedure with assistance. All sponge, lap, and needle counts were correct. The patient was taken to her room for recovery in a stable condition. Presentation: Positive for Vertex Amniotic Membrane Rupture Type: Artificial Amniotic Fluid Description: Clear Placental Delivery Description: Expressed Placenta Disposition: [facility] Cord Vessel Description: 3 Vessels Cord Entanglement: Around neck x 1, loose Nuchal Cord Compression: Without compression Infant A Gender: Female (1 minute): 8 (5 minute): 9 Delayed Cord Clamping: Yes Complications Complications: None Admit VTE Documentation VTE Mechan Device Prophylaxis: SCD's VTE Pharm Prophylaxis Ordered: Yes
[2023-04-23] MEDS: Oxytocin 15 Units/NS 250ml 15 UNITS/250 ML IV.SOLN 83 UNITS IV (08:35)
[2023-04-23 09:02] LABS: Syphilis Antibodies Non-reactive
[2023-04-23] MEDS: Ketorolac 30 MG/ML Syringe IV ×3 (09:12→21:21)
[2023-04-23] MEDS: Ondansetron 4 MG/2 ML Vial IV ×2 (10:39→14:27)
[2023-04-23] MEDS: Lactated Ringers 1,000 ML 100 ML IV (12:21)
[2023-04-23] MEDS: proCHLORPERazine 10 MG/2 ML Vial IV (19:10)
[2023-04-23] MEDS: Enoxaparin 40 MG/0.4 ML Syringe SC (20:22)
[2023-04-23] MEDS: 0.9% Saline Lock 10 ML Syringe IV (21:20)
[2023-04-24 00:20] VITALS: BP 124/67; PULSE 80; RESP 16; TEMP 36.6; O2SAT 100
[2023-04-24] MEDS: Acetaminophen 500 MG Tablet 1000 MG PO ×3 (03:34→15:35)
[2023-04-24] MEDS: 0.9% Saline Lock 10 ML Syringe IV (03:34)
[2023-04-24] MEDS: Ketorolac 30 MG/ML Syringe IV (03:34)
[2023-04-24 03:35] VITALS: BP 121/67; PULSE 94; RESP 16; TEMP 36.7; O2SAT 100
[2023-04-24 05:46] LABS: Hematocrit 27.7 % (37-47); Hemoglobin 8.6 g/dL (12.0-15.0); Mean Corpuscular Hgb 25.3 pg (27.0-32.0); Mean Corpuscular Volume 81.5 fL (81-99); Mean Platelet Vol. 11.7 fl (6.2-12.0); Platelet Count 135 K/mm3 (150-450); RBC Distribution Width CV 13.8 % (11.6-14.6); RBC Distribution Width SD 40.3 fl (35.1-43.9); White Blood Count 8.8 K/mm3 (4.4-11.0)
--- NOTE | 2023-04-24 07:33 | PCM.DC.SUM ---
Providers Date of Admission: 04/23/23 Primary Care Physician: Dr. Abhijeet Prieto MD Reason For Visit: REPEAT C SECTION Diagnosis Discharge Diagnosis (1) delivery delivered: Status: Acute Code(s): O82 - Encounter for delivery without indication (2) Care and examination of lactating mother: Status: Acute Code(s): Z39.1 - Encounter for care and examination of lactating mother Medications at Discharge Home Medications vit no.95-ferrous fumarate 28 mg-folic acid 800 mcg tablet 1 ea PO DAILY 04/12/19 cetirizine 10 mg tablet (Zyrtec) 10 mg PO DAILY allergy symptoms 05/22/21 acetaminophen 500 mg tablet 1,000 mg (2 x 500 mg) PO Q6H #0 tabs 04/24/23 ibuprofen 600 mg tablet 600 mg PO Q6H #0 tabs 04/24/23 sennosides 8.6 mg-docusate sodium 50 mg tablet (Stool Softener-Stimulant Laxative) 1 - 2 tab PO DAILY #0 tabs 04/24/23 Hospital Course Operations section Procedures None Summary of Care Provided Minutes Spent on Discharge: 15 Hospital Course: Patient for scheduled repeat section. Hospital course was uneventful. Physical Exam Narrative Patient seen at bedside. Up ambulating in room. Voiding without difficulty. Passing flatus. with minimal support. Denies any dizziness, headache, SOB, or CP. Desires discharge home later today. Const alert and no apparent distress General Appearance: cooperative and comfortable Exam Limitations: no limitations HEENT normocephalic Eyes General Eye: normal appearance of both eyes Neck full ROM General: normal visual inspection Chest Chest: symmetrical chest wall rise Resp normal respiratory effort and normal air movement Effort and Inspection: symmetric chest movement Auscultation: clear to auscultation bilaterally Cardio regular rate and regular rhythm GI normal to inspection, nondistended, normoactive bowel sounds Back/Spine normal ROM Extremity full ROM and no calf tenderness General Extremity: normal exam except as noted Skin no rashes or lesions noted Neuro CN's II-XII intact bilaterally Psych mental status grossly normal Weight / BMI Weight Weight: 251 lb 9.6 oz Body Mass Index (BMI) 39.4 ABG / Lab / Microbiology Data 04/24/23 05:30 Laboratory: Laboratory Results - last 24 hr 04/23/23 05:50: WBC 7.7, RBC 3.98 L, Hgb 10.3 L, Hct 32.1 L, MCV 80.7 L, MCH 25.9 L, MCHC 32.1, RDW Std Deviation 13.4 L, RDW Coeff of Cesario 39.0 H, Plt Count 159, MPV 12.1 H, Immature Gran % (Auto) 0.600, Neut % (Auto) 71.5 H, Lymph % (Auto) 19.8, [place] % (Auto) 6.9, Eos % (Auto) 0.9, Baso % (Auto) 0.3, Absolute Neuts (auto) 5.5, Absolute Lymphs (auto) 1.53, Syphilis Total Ab Non-reactive 04/24/23 05:30: WBC 8.8, RBC 3.40 L, Hgb 8.6 L, Hct 27.7 L, MCV 81.5, MCH 25.3 L, MCHC 31.0 L, RDW Std Deviation 40.3, RDW Coeff of Cesario 13.8, Plt Count 135 L, MPV 11.7 D/C Instructions Discharge Diet: No restrictions May resume sexual activity in: 6-8 weeks Weight Bearing Status: Weight bearing as tolerated Lifting Restrictions: 20 lbs Call your doctor if your incision/area has: Continuous Slow Oozing, Increased Pain/ Swelling, Increased Redness, Foul Smelling Discharge and Swelling at the incision site Call your doctor if you observe: Fever of 101 or Higher, Inability to urinate, Using more than 1 pad per hour, Shortness of breath, Chest pain, Calf discomfort and Uncontrolled pain Remove Dressing in: 5 days Cleanse incision/area with: Soap & Water and Keep Dressing Clean & Dry Please Follow Up With: Liza Gonzales CNM When: 1 week in office for incision check or sooner if needed 6 weeks Meaningful Use Info Meaningful Use Diagnoses (Choose all that apply): None applicable Discharge Plan Admission Admit Date/Time: 04/23/23 05:02 Primary Reason for Your Visit: Repeat Section Attending Provider: Unique Leigh Primary Care Provider: Abhijeet Prieto Discharge Orders/Prescriptions Prescriptions: New sennosides-docusate sodium [Stool Softener-Stimulant Laxat] 8.6-50 mg Tablet 1 - 2 tab PO DAILY Qty: 0 0RF acetaminophen 500 mg Tablet 1,000 mg PO Q6H Qty: 0 0RF ibuprofen 600 mg Tablet 600 mg PO Q6H Qty: 0 0RF Continued PNV cmb#95-ferrous fumarate-FA 1 EACH tablet 1 ea PO DAILY cetirizine [Zyrtec] 10 mg Tablet 10 mg PO DAILY Referrals / Follow Up: Abhijeet Prieto MD [Primary Care Provider] - Disposition Disposition (needs filled in before D/C Order can be placed): Home, Self Care
[2023-04-24 09:43] VITALS: BP 127/73; PULSE 101; RESP 16; TEMP 36.8; O2SAT 100
[2023-04-24] MEDS: Ibuprofen 600 MG Tablet PO ×2 (09:53→15:35)
[2023-04-24] MEDS: Senna/Docusate Sodium 1 Tablet PO (09:53)
[2023-04-24 14:57] VITALS: BP 126/83; PULSE 102; RESP 16; TEMP 36.6; O2SAT 98
[2023-04-24] MEDS: Ferrous Sulfate 325 MG Tablet PO (15:35)
--- NOTE | 2023-04-28 10:30 | NURSING ---
F/up call attempted, no answer. Voicemail left with unit phone number if patient has questions or concerns.
== END 2023-04-24 16:35 | disposition home or self-care (01) | DRG 788 ==
PROVIDERS: Admitting Provider Obstetrics & Gynecology; PCP Family Medicine; Visit Provider Obstetrics & Gynecology
PROC: 10D00Z1 Extraction of Products of Conception, Low, Open Approach (ICD-10-PCS; CPT 59514; principal; 2023-04-23 07:00)
DX: O34.211 Maternal care for low transverse scar from previous cesarean delivery (principal); O69.81X0 Labor and delivery complicated by cord around neck, without compression, not applicable or unspecified; Z37.0 Single live birth; Z3A.39 39 weeks gestation of pregnancy
CPT/HCPCS: 59025; 59050; 85025; 85027; 86780; 86850; 86900; 86901; 99221; J7120; A4216; G0378; J2405